=== PATIENT | male | born 1980 | race Caucasian/White ===

== ENCOUNTER 2016-09-12 09:00 | Emergency (ER) | payer BC ==
[2016-09-12] MEDS ORDERED: ONDANSETRON HCL/PF 2 MG/ML VIAL IV ONE (09:51)
[2016-09-12] MEDS ORDERED: KETOROLAC TROMETHAMINE 30 MG/ML VIAL IV ONE (09:52)
[2016-09-12 10:07] LABS: Hematocrit 42.8 % (42.0-52.0); Hemoglobin 14.5 gm/dL (13.5-18.0); Mean Cell Volume 84.9 fl (78-100); Mean Corpuscular Hemoglobin 28.8 pg (27-31); Mean Corpuscular Hgb Conc 33.9 g/dl (32-36); Mean Platelet Volume 8.7 fl (6.0-9.5); Neutrophil # 6.9 K/mm3 (1.3-6.0); Neutrophil % 73.1 % (42-75.0); Platelet Count 281 K/mm3 (150-450); Red Blood Count 5.04 M/mm3 (4.7-6.0); Red Cell Distribution Width 13.2 % (11.5-14.0); White Blood Count 9.4 K/mm3 (4.0-10.5)
[2016-09-12] MEDS ORDERED: ONDANSETRON HCL/PF 2 MG/ML VIAL ONE (10:10)
[2016-09-12] MEDS ORDERED: KETOROLAC TROMETHAMINE 30 MG/ML VIAL ONE (10:11)
--- NOTE | 2016-09-12 10:24 | ERNOTE ---
Back Pain ER HPI Date of Service: 09/12/16 Time Seen by Provider: 09/12/16 09:43 Source: patient Exam Limitations: no limitations Immunizations: IMMUNIZATION HX Immunizations Up to Date Yes History of Influenza Vaccine No Hx Pneumococcal Vaccination No Allergies/Adverse Reactions: Allergies No Known Allergies Allergy (Verified 09/12/16 09:15) Home Medications: HOME MEDICATIONS HYDROcodone/ACETAMINOPHEN [Vicodin 5-325] 1 each PO Q4H PRN 08/22/13 [Last Taken Unknown] Omeprazole 20 mg PO PRN PRN 09/12/16 [Last Taken Unknown] Narrative: Pt. comes in with c/o R lower back/ flank pain for two days. Pt. has had a hx of back pain but pt. states that this is different. Pt. denies any SOB, CP, palpitations, Vomiting, Diarrhea, dysuria. Pt. does state that he has constipation and RLQ suprapubic pain with palpation. Pt. states that he took his [place] without relief.Pt. denies any alleviating factors but states that movement exacerbates the pain. Review of Systems - Review of Systems Constitutional: Present: no symptoms reported. Absent: recent illness, fever, chills, malaise EYE: Present: no symptoms reported ENT: Present: no symptoms reported Respiratory: Present: no symptoms reported. Absent: shortness of breath, cough , wheezing Cardiology: Present: no symptoms reported. Absent: chest pain, palpitations, edema Gastrointestinal/Abdominal: Present: nausea, abdominal pain. Absent: vomiting, diarrhea Genitourinary: Present: pain - R flank. Absent: frequency, hematuria, decreased urinary output Musculoskeletal: Present: back pain - R flank Skin: Present: no symptoms reported. Absent: rash, change in color Neurological: Present: no symptoms reported. Absent: headache, dizziness/light- headedness, numbness All Other Systems: All systems neg except as marked - Patient's Past Medical History Patient History - Medical: GERD Patient History - Cancer: No Hx of Cancer Patient History - Surgical Procedures: Other - Social History Living Situations: spouse Alcohol Use: none Drug Use: none Physical Exam - Physical Exam General Appearance: Present: wd/wn, alert, no apparent distress Eye Exam: Normal inspection: bilateral, PERRL: bilateral, EOMI: bilateral Ears, Nose, Throat: Present: normal ENT inspection, hearing grossly normal, normal pharynx Neck: Present: normal inspection, nontender. Absent: lymphadenopathy (R), lymphadenopathy (L) Respiratory: Present: no respiratory distress, normal breath sounds, no accessory muscle use, chest nontender, lungs clear Cardiovascular/Chest: Present: regular rate, rhythm, no murmur, normal peripheral pulses Gastrointestinal/Abdominal: Present: normal bowel sounds, soft, no organomegaly , tenderness - RLQ and Suprapubic. Absent: nondistended, McBurney sign, Obturator sign, Wilson sign, Psoas sign Back Exam: Present: normal range of motion, no vertebral tenderness, CVA tenderness (R). 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 Absent: pallor, skin rash ED Progress - Results and Orders Patient's Lab Results:: I have reviewed the patient's lab results. - Vital Signs Patient's Vital Signs:: I have reviewed the patient's vital signs. Vital Signs: Vital Signs 09/12/16 09:32 Temperature 37.1 C Pulse Rate 86 Respiratory 16 Rate Blood Pressure 139/71 O2 Sat by Pulse 95 Oximetry - EKG EKG: NSR EKG read: Interp. by me - X-Ray X-Ray #1 X-Ray: abdomen Interpretation: Reviewed by me X-ray Comments: severe constipation on R ascending colon and transverse colon gas filled bowel on decending colon but stool noted past this air so is is non obstructive - Progress/Reassessment Chief Complaint: Back Pain Plan - Plan Plan: R flank pain- Feel that this is related to distended appearance of his R bowel and will have pt. follow up with PCP in 1-2 days after he takes 2 bottles of magnesium citrate and does 1 enema at home. Educated pt. on using miralax with his [place] Departure Clinical Impression: Constipation Qualifiers: Constipation type: slow transit constipation Qualified Code(s): K59.01 - Slow transit constipation Back pain Qualifiers: Back pain location: low back pain Chronicity: chronic Back pain laterality: right Sciatica presence: with sciatica Sciatica laterality: sciatica of right side Qualified Code(s): M54.41 - Lumbago with sciatica, right side; G89.29 - Other chronic pain - Departure Disposition: Home self-care Condition: Good Instructions: Constipation, Adult, [id number] Additional Instructions: Please follow up with primary provider in 2-3 days. Please tack picker 2 bottles of magnesium citrate, 1 fleets enema, and miralax. Take the one bottle of magnesium citrate when you get home and if no results in 2 hours take the other bottle. If still no results please perform fleets enema and start miralax in the morning. May use Ibuprofen or tylenol for pain but please refrain from using [place] until constipation resolves. Referrals: Erin Kwan MD [Primary Care Provider] -
[2016-09-12 10:36] LABS: BUN/Creatinine Ratio 11.6 (9.0-21.6); Bilirubin, Total 0.9 mg/dL (0.0-1.1); Ca. Corrected For Albumin 8.1 mg/dL (8.4-10.2); Calcium * 8.4 mg/dL (7.9-10.9); Carbon Dioxide 24.8 mmol/L (24-32.6); Potassium 3.8 mmol/L (3.4-4.6); Total Protein 7.5 gm/dL (6.2-8.2)
[2016-09-12 10:53] LABS: Urine Bilirubin Negative (NEGATIVE); Urine Ketone Negative (NEGATIVE); Urine Nitrite Negative (NEGATIVE); Urine Protein Negative (NEGATIVE); Urine Specific Gravity >=1.030 SP.GR. (1.005-1.030); Urine Urobilinogen Normal (NORMAL)
[2016-09-12 10:58] LABS: Urine Appearance Clear; Urine Blood Negative /ul (NEGATIVE); Urine Color Yellow; Urine RBC 0-5 /hpf (0-5); Urine WBC 0-5 /hpf (0-5)
[2016-09-12 10:59] LABS: Urine Bacteria None Seen
[2016-09-12 13:08] VITALS: BP 108/58
== END 2016-09-12 13:29 | disposition home or self-care (01) ==
LOC: ER 09:00
DX: K59.01 Slow transit constipation (principal); M54.41 Lumbago with sciatica, right side; G89.29 Other chronic pain; K21.9 Gastro-esophageal reflux disease without esophagitis